=== PATIENT | male | born 1990 | race Caucasian/White ===

== ENCOUNTER → 2019-06-18 16:24 | Outpatient (CLI) | payer OTHER, SELFPAY | PROVIDERS: PCP Family Medicine; Visit Provider Physician Assistant | DX: L03.031 Cellulitis of right toe (principal) | CPT/HCPCS: 87070; 87075; 87077; 87147; 87186; 87205 ==

== ENCOUNTER 2020-04-29 11:14 | Emergency (ER) | payer OTHER, SELFPAY ==
[2020-04-29 11:22] VITALS: BP 133/78; PULSE 90; RESP 14; TEMP 36.4; O2SAT 100
[2020-04-29] MEDS: ACETAMINOPHEN 325 MG TABLET 650 MG PO (13:38)
[2020-04-29] MEDS: AMOXICILLIN/CLAV 875/125 MG 1 TAB PO (13:39)
[2020-04-29] MEDS: IBUPROFEN 400 MG TABLET PO (13:39)
[2020-04-29 13:47] VITALS: BP 136/88; PULSE 84; RESP 18; O2SAT 99
--- NOTE | 2020-04-29 13:55 | ED_ITS ---
HPI - Dental/Oral <Hemant Pengshireen [facility] - Last Filed: 04/29/20 23:53> General Chief complaint: Dental/Oral Stated complaint: JAW PAIN,PRESSURE ON LEFT SIDE OF HEAD Time Seen by Provider: 04/29/20 13:11 Source: patient Mode of arrival: Ambulatory Limitations: no limitations History of Present Illness HPI Narrative: This is a 29-year-old male, smoker, who has history of seizure presents to ED with left jaw swelling and pain for last 4 days and pressure-like pain in left side head for last 1-2 days. Patient denies fever, chills, nausea or vomiting. Patient reports tooth extraction a few month ago on the left lower mouth and reports pain in the same area. The patient denies drainage from the gum. Patient denies cough, runny nose, or known exposure to COVID-19. Reports bilateral ear fullness. Patient also reports occasional posterior left knee and elbow pain and he works at a [employer]. Patient denies history or family history of arthritis. Patient denies redness or warmth on affected sites or pain in his calf. Patient states intact sensation and mobility to left foot and arm. He is not sure of injury or trama to these area. MD Complaint: tooth pain Related Data Allergies Allergy/AdvReac Type Severity Reaction Status Date / Time No Known Drug Allergies Allergy Verified 04/29/20 11:26 Review of Systems <Hemant Pengshireen [facility] - Last Filed: 04/29/20 23:53> Review of Systems Narrative: General: Denies fever, chills, fatigue, malaise, sweats. HEENT: See HPI Respiratory: Denies dyspnea, cough, wheezing, hemoptysis, sputum. Cardiovascular: Denies chest pain, palpitations, orthopnea, edema. Gastrointestinal: Denies nausea, vomiting, abdominal pain, diarrhea, constipation, melena. : Denies dysuria, frequency, incontinence, hematuria, urinary retention. Musculoskeletal: See HPI Skin: Denies rash, skin lesions, or other. Neurologic: Denies weakness, headache, numbness, change in speech, confusion, seizures, incoordination. Psychiatric: No concerning psychosocial issues. 12-point review of systems is negative except for those stated above. Patient History <Hemant ConleySolangeshireen [facility] Last Filed: 04/29/20 23:53> Medical History Seizure (Acute) Social History Smoking Status: Never smoker alcohol intake: never Smoking Status: Never smoker alcohol intake frequency: 0-2 drinks per day Substance Use Type: does not use Exam <LAURA Pineda - Last Filed: 04/29/20 23:53> Narrative Exam Narrative: GEN: Alert, oriented x 3, well appearing and nourished, and in no acute distress. Head: Normal cephalic, atraumatic. No scalp or temporal tenderness, palpable mass or rash. EYES: Pupils are equal, round, and reactive to light and accommodation. Extraocular muscles are intact bilaterally. There is no subconjunctival hemorrhage, exudate and sclera non-icteric. ENT: Bilateral auditory canals scared with cerumen. No tender to palpate in tragus. Hearing grossly intact. Nose without bleeding, purulent discharge or deviation. Facial sinuses nontender to palpate. Mucous membrane moist, no mucosal lesion. Slight swelling to left cheek without warmth or erythema. Throat without erythema, tonsillar hypertrophy or exudate. Uvula in midline, airway patent. Missing Tooth 18. Tooth 17 in dark dicoloration and capped. Tender to percuss/palpate. Neck: Trachea in midline. No JVD, mild tenderness to palpate in left anterior cervical lymph nodes. No masses or thyroid megaly. Supple, non-tender and no meningeal signs. CARDIAC: Normal regular rate and rhythm without murmurs, gallops, or rubs. No chest wall tenderness. No peripheral edema, cyanosis or pallor. Capillary refill is less than 2 seconds. RESPIRATORY: Lungs are clear to auscultate bilaterally. No cough, wheezes, rales, or rhonchi. No stridor, respiratory distress, increase work of breathing, or accessary muscle used. ABD: Abdomen soft, nontender and non-distended. No guarding or rebound tenderness to palpate. Bowel sounds are normal in all 4 quadrants. There is no palpable masses or organomegaly. EXT: Full painless ROM of all extremities with no loss of sensation, strength, effusion or edema. Light yellowish discoloration to left inferior knee. Intact sensation, pulse, and mobility distally. No deformity or swelling to left elbow. SKIN: Warm, dry, normal color for patient. No erythema, lesions or rash over visible areas. BACK: Nontender without deformity or crepitance. No flank tenderness. NEUROLOGICAL: Alert and oriented to place, time and person. Sensation and motor function intact bilaterally. No facial droops, dysphasia. PSYCHIATRIC: Good judgement and reason, without hallucinations, abnormal affect or abnormal behaviors during the examination. Patient is not suicidal. Initial Vital Signs Initial Vital Signs: Vital Signs Temperature 97.6 F 04/29/20 11:22 Pulse Rate 90 04/29/20 11:22 Respiratory Rate 14 04/29/20 11:22 Blood Pressure 133/78 04/29/20 11:22 Pulse Oximetry 100 04/29/20 11:22 <John Porter MD - Last Filed: 05/14/20 09:06> Initial Vital Signs Initial Vital Signs: Vital Signs Temperature 97.6 F 04/29/20 11:22 Pulse Rate 90 04/29/20 11:22 Respiratory Rate 14 04/29/20 11:22 Blood Pressure 133/78 04/29/20 11:22 Pulse Oximetry 100 04/29/20 11:22 Scores <LAURA Pineda - Last Filed: 04/29/20 23:53> GCS [place] coma scale eye opening: Spontaneous Dipti coma scale verbal response: Orientated [place] coma scale motor response: Obey commands [place] coma scale total score: 15 Course <LAURA Pineda - Last Filed: 04/29/20 23:53> Orders Ordered: Discontinued Medications Acetaminophen (Tylenol) 650 mg PO NOW ONE Stop: 04/29/20 13:35 Last Admin: 04/29/20 13:38 Dose: 650 mg Documented by: LUCIEN Amoxicillin/Clavulanate Potassium (Augmentin 875-125 Mg) 1 tab PO NOW ONE Stop: 04/29/20 13:35 Last Admin: 04/29/20 13:39 Dose: 1 tab Documented by: LUCIEN Ibuprofen (Advil) 400 mg PO NOW ONE Stop: 04/29/20 13:35 Last Admin: 04/29/20 13:39 Dose: 400 mg Documented by: LUCIEN Vital Signs Vital signs: Vital Signs - 8 hr 04/29/20 11:22 04/29/20 13:47 Temperature 97.6 F Pulse Rate 90 84 Respiratory Rate 14 18 Blood Pressure 133/78 136/88 Pulse Oximetry 100 99 <John Porter MD - Last Filed: 05/14/20 09:06> Orders Ordered: Discontinued Medications Acetaminophen (Tylenol) 650 mg PO NOW ONE Stop: 04/29/20 13:35 Last Admin: 04/29/20 13:38 Dose: 650 mg Documented by: LUCIEN Amoxicillin/Clavulanate Potassium (Augmentin 875-125 Mg) 1 tab PO NOW ONE Stop: 04/29/20 13:35 Last Admin: 04/29/20 13:39 Dose: 1 tab Documented by: LUCIEN Ibuprofen (Advil) 400 mg PO NOW ONE Stop: 04/29/20 13:35 Last Admin: 04/29/20 13:39 Dose: 400 mg Documented by: LUCIEN Vital Signs Vital signs: Vital Signs - 8 hr 04/29/20 11:22 04/29/20 13:47 Temperature 97.6 F Pulse Rate 90 84 Respiratory Rate 14 18 Blood Pressure 133/78 136/88 Pulse Oximetry 100 99 MDM - Dental/Oral <LAURA Pineda - Last Filed: 04/29/20 23:53> Differential Diagnosis Differential diagnosis: Likely dental caries, toothache, dental abscess and other (Cerumen impaction, contusion to left knee) Medical Records Attestation: I reviewed the patient's medical records. Lab Data Labs: Lab Results 04/29/20 Range/Units 13:41 COVID-19 PCR Negative (Negative) MDM Narrative Medical decision making narrative: Patient is treated with Augmentin for dental caries/dental abscess in left lower mouth per physical exam. Patient is able to flex, extend without difficulty in left knee and elbow with intact sensation, circulation, mobility. Light yellow bruise which are appears to be old in left inferior knee without significant tenderness. No imaging test is done since patient is able to bear weight without difficulty and no significant tenderness to palpate. Patient requesting work off note for today. Patient appears to follow-up with dentist for an evaluation and treatment. Return precautions were discussed with patient patient verbalized understanding and in agreement with treatment plan. <John Porter MD - Last Filed: 05/14/20 09:06> Lab Data Labs: Lab Results 04/29/20 Range/Units 13:41 COVID-19 PCR Negative (Negative) Discharge Plan Departure Patient Disposition: Home Clinical Impression: Dental infection, Bilateral impacted cerumen, Knee pain, left Discharge Date/Time: 04/29/20 13:48 Instructions: Cerumen Impaction, DI for Dental Pain, DI for Knee Pain Activity Restrictions/Additional Instructions: You have been diagnosed with [left-sided dental infection, cerumen impaction, and left knee pain.]. What to do: *Take your medications as directed. You were medicated with Augmentin 1st dose in ED. please take it twice a day, every 12 hours for next 7 days. You can take [id number] Tylenol and or Motrin as needed for discomfort. Please take it with food when you take Motrin. You can take Tylenol 650-1000 mg up to 3 to 4 times a day as needed. Ibuprofen 400-600 mg to 3 times a day. These medication will help with the pain in your jaw, knee, and years. You can also purchased [id number] earwax medication. You can use it daily for days and rinse it out with warm water with syringe or shower to remove ear wax. Do not clean her ear with Q-tips. Augmentin has been transmitted to [facility] in [facility]. *Follow up with your primary care provider/dentist in 2-3 days, call for an appointment. Let them know you were seen in the ED and that we asked you to be seen in follow up. *Return to ED if you have any new, worsening, or concerning symptoms, such as [fever, chest pain, unable to tolerate fluids, worsening pain, redness/swelling/warmth spreading to her face or any acute concerns]. Referrals: Maximilian Rome MD [Primary Care Provider] - Stand Alone Forms: Work Release Note
[2020-04-29 14:16] LABS: COVID19 -Nasal RAPID Negative (Negative)
== END 2020-04-29 13:48 | disposition home or self-care (01) ==
PROVIDERS: Emergency Provider Nurse Practitioner Family; PCP Family Medicine
DX: K04.7 Periapical abscess without sinus (principal); H61.23 Impacted cerumen, bilateral; M25.562 Pain in left knee; Z11.59 Encounter for screening for other viral diseases
CPT/HCPCS: 87635; 99283

== ENCOUNTER 2021-11-13 00:19 | Emergency (ER) | payer SELFPAY ==
[2021-11-13 00:23] VITALS: BP 135/80; PULSE 77; RESP 14; TEMP 36.6; O2SAT 98; BMI 33.4
--- NOTE | 2021-11-13 02:02 | ED.GENADULT ---
HPI - General Adult General Chief complaint: Extremity Injury, Upper Stated complaint: CUT RIGHT HAND FINGER Time Seen by Provider: 11/13/21 01:53 Source: patient Mode of arrival: Ambulatory History of Present Illness HPI narrative: 30-year-old gentle with no significant medical history was closing a carmela-knife in the car and caught the tip of his right ring finger between the blade in the knife. He has a small laceration. Bleeding is controlled and he comes in for further evaluation. Last tetanus shot was 2 years ago. He is right-hand dominant. He has no other complaints. Related Data Allergies Allergy/AdvReac Type Severity Reaction Status Date / Time No Known Drug Allergies Allergy Verified 04/29/20 11:26 Review of Systems Review of Systems Narrative: No fevers, cough, chest pain, palpitations, vomiting, diarrhea, abdominal pain Patient History Medical History (Updated 11/13/21 @ 02:07 by Concha Odonnell MD) Seizure Social History Smoking Status: Never smoker alcohol intake: never Smoking Status: Never smoker alcohol intake frequency: 0-2 drinks per day Substance Use Type: does not use Exam Initial Vital Signs Initial Vital Signs: Vital Signs Temperature 98 F 11/13/21 00:23 Pulse Rate 77 11/13/21 00:23 Respiratory Rate 14 11/13/21 00:23 Blood Pressure 135/80 11/13/21 00:23 Pulse Oximetry 98 11/13/21 00:23 General: Alert appropriate in no acute distress Respiratory: Able to speak in full sentences, no obvious respiratory distress Skin: No obvious rashes, warm and dry Neurologic: Grossly intact no obvious asymmetries or abnormalities Psych: appropriate insight and affect, cooperative Extremity: There is a 0.5 x 1 cm flap like laceration at the tip of the right palmar surface ring finger. No nail bed involvement, minimal bleeding, very superficial. Wound is cleaned. Skin glue was used to allow the a small flap of skin to act as a biologic Band-Aid. The area is dressed without complications. Procedures Laceration Repair Right ring finger: Time of procedure: 02:04 Site: hand Side (If applicable): right Size (cm): 1 Description: flap (Very shallow) Pre-repair: wound explored Skin layer closed with: dermabond Course Vital Signs Vital signs: Vital Signs - 8 hr 11/13/21 00:23 Temperature 98 F Pulse Rate 77 Respiratory Rate 14 Blood Pressure 135/80 Pulse Oximetry 98 Medical Decision Making MDM Narrative Medical decision making narrative: 30-year-old man with a small cut to the right hand palmar surface ring finger from his carmeal-knife. Dermabond is used to hold the edges together for another 24-48 hours to allow the flap to act as a biologic bandage. It will fall off this is reviewed with him. Recommended keeping the area clean and dry, antibiotic dressing a Band-Aid as needed. He is given a a finger splint so that he isn't continually tapping the end of his finger causing pain. He is up-to-date on tetanus status and he is safe for discharge home Discharge Plan Departure Patient Disposition: Home Clinical Impression: Finger laceration Qualifiers: Encounter type: initial encounter Finger: ring finger Damage to nail status: without damage Foreign body presence: without foreign body Laterality: right Qualified Code(s): S61.214A - Laceration without foreign body of right ring finger without damage to nail, initial encounter Instructions: DI for Laceration Repair -- Finger Activity Restrictions/Additional Instructions: Thank you for coming in today For a small cut on the tip of your finger did not need stitches. I did use skin glue to help the small flap of skin stay in place for 1-2 days to allow the new cells to start growing in underneath before that flap falls off. Please keep the finger clean and dry, use antibiotic ointment and a Band-Aid to help improve healing. If there are any signs or symptoms of infection I would encourage you to return to the emergency department Referrals: Maximilian Rome MD [Primary Care Provider] -
== END 2021-11-13 02:12 | disposition home or self-care (01) ==
PROVIDERS: Emergency Provider Emergency Medicine; PCP Family Medicine
DX: S61.214A Laceration without foreign body of right ring finger without damage to nail, initial encounter (principal); W26.0XXA Contact with knife, initial encounter
CPT/HCPCS: 99281